=== PATIENT | male | born 1970 | race Caucasian/White ===

== ENCOUNTER 2017-05-16 13:32 | Emergency (ER) | payer MEDICAID, OTHER ==
[~2017-05-16] VITALS: Ht 190.5 cm; Wt 95.3 kg
--- NOTE | 2017-05-16 14:05 | NUR ---
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 WOUND IS TIGHTLY WRAPPED, BLEEDING PROFUSELY. PATIENT IS A/OX 4. BREATHING EVEN AND UNLABORED. NO SOB. VITALS STABLE AT THIS TIME. SAFETY AND COMFORT MEASURSE IN PLACE. AWAITING MD ORDERS.
--- NOTE | 2017-05-16 14:10 | NUR ---
PRODUCTION CLERKS SUPERVISOR, MICHELLE MARVIN AT BEDSIDE ATTEMPTING TO SUTURE LAC, BUT TOO MUCH BLEEDING NOTED. PRESSURE BANDAGE APPLIED PER ORDERS, WILL FOLLOW UP.
--- NOTE | 2017-05-16 14:14 | NUR ---
DR. YUNIOR MARTINEZ.
[2017-05-16] MEDS ORDERED: ONDANSETRON 4 MG TAB.RAPDIS SL ONE (14:30)
[2017-05-16] MEDS ORDERED: LIDOCAINE HCL/PF 1% 30 ML VIAL TP ONE (14:30)
[2017-05-16] MEDS ORDERED: MORPHINE SULFATE INJ 10 MG/ML DISP.SYRIN IM ONE (14:30)
[2017-05-16] MEDS ORDERED: MORPHINE SULFATE INJ 4 MG/ML DISP.SYRIN ONE (14:39)
[2017-05-16] MEDS ORDERED: ONDANSETRON HCL/PF 4 MG/2 ML VIAL ONE (14:39)
--- NOTE | 2017-05-16 14:40 | NUR ---
MARKET CONSULTANT, MICHELLE MARVIN AT BEDSIDE ONCE AGAIN FOR SUTURES. RIGHT HAND BLEEDING CAUTERIZED SUCCESSFULLY, MICHELLE TO CONTINUE WITH SUTURING.
[2017-05-16] MEDS ORDERED: ONDANSETRON 4 MG TAB.RAPDIS ONE (14:42)
[2017-05-16] MEDS ORDERED: CEPHALEXIN MONOHYDRATE 500 MG CAPSULE PO ONE ×2 (15:18→15:30)
[2017-05-16 15:39] VITALS: BP 116/74
== END 2017-05-16 15:39 | disposition home or self-care (01) ==
LOC: ER 13:33
DX: S61.411A Laceration without foreign body of right hand, initial encounter (principal); F17.200 Nicotine dependence, unspecified, uncomplicated; Z88.5 Allergy status to narcotic agent; W23.0XXA Caught, crushed, jammed, or pinched between moving objects, initial encounter; Y93.89 Activity, other specified; Y92.89 Other specified places as the place of occurrence of the external cause; Y99.8 Other external cause status
CPT/HCPCS: A4606; A6402; J2270; J2405; J3490; Q0162; Z7610